=== PATIENT | male | born 1955 | race Caucasian/White ===

== ENCOUNTER 2023-02-05 15:37 | Emergency (ER) | payer MEDICARE ==
[~2023-02-05] VITALS: Ht 182.9 cm; Wt 136.1 kg
[2023-02-05 16:02] VITALS: BP 135/65
[2023-02-05] MEDS ORDERED: TORADOL IM STA (16:42)
[2023-02-05] MEDS ORDERED: TORADOL ONE (16:46)
--- NOTE | 2023-02-05 17:37 | DIREP ---
PROCEDURE:XRAY HIP MIN 2VW-RT COMPARISON:None. INDICATIONS:pain after injury FINDINGS: BONES:Right hip replacement. Hardware intact. Satisfactory alignment. JOINTS:Normal. SOFT TISSUES:Normal. OTHER:No additional findings. CONCLUSION:Hip replacement, no acute findings. Dictated by: Saúl Teresa MD on 02/05/2023 at 05:34 PM
--- NOTE | 2023-02-05 17:40 | DIREP ---
PROCEDURE:XRAY ANKLE MIN 3VWS-RT COMPARISON:None. INDICATIONS:pain after injury FINDINGS: BONES:Oblique mildly displaced fracture through the distal fibula, above the level of the talar dome. Degenerative changes of the dorsal midfoot with osteophyte. Moderate inferior calcaneal heel spur. JOINTS:Widening of the ankle mortise SOFT TISSUES:Soft tissue swelling overlying the lateral malleolus OTHER:No additional findings. CONCLUSION:Oblique mildly displaced fracture of the distal fibula. Dictated by: Saúl Teresa MD on 02/05/2023 at 05:36 PM
--- NOTE | 2023-02-05 17:41 | DIREP ---
PROCEDURE:XRAY KNEE 3 VIEWS-RT COMPARISON:None. INDICATIONS:pain after injury FINDINGS: BONES:Degenerative changes, small amounts of osteophyte and mild loss of joint space. JOINTS:Chondrocalcinosis SOFT TISSUES:Normal. OTHER:No additional findings. CONCLUSION:Dtwe-[id number]-vwutxvzm degenerative change. No acute findings. Dictated by: Saúl Teresa MD on 02/05/2023 at 05:39 PM
--- NOTE | 2023-02-05 18:02 | ER.PDOC ---
General Chief Complaint: Extremities Stated Complaint: KNEE AND ANKLE INJURY Time seen by MD: 16:05 Source: patient, family Exam Limitations: no limitations History of Present Illness Initial Comments Patient is a 67-year-old male with a past medical history of diabetes and blood pressure as well as dropfoot who has To wear special bracesComes in after a fall with right lower extremity pain. Patient states that he fell tripped and immediately had a sharp pain in his right lower extremity states that it occurred about 1 day ago last night and states that the pain is just progressively gotten worse. Patient states that sharp nonradiating made worse with movement palpation better with rest also made worse with weightbearing. Patient states that is started having bruising and swelling today is associated symptoms. Allergies: Coded Allergies: No Known Allergies (Unverified , 02/05/23) Past Medical History Medical History: diabetes, hypertension, other Surgical History: back, hip, knee, shoulder Family History Significant Family History: no pertinent family hx Social History Smoking: less than 1 pack/day Alcohol Use: none Drug Use: none Reviewed Nursing Reviewed: Vital Signs, Abn. Noted, Nursing Assessment Review of Systems Constitutional: no symptoms reported EENTM: no symptoms reported Respiratory: no symptoms reported Cardiovascular: no symptoms reported Gastrointestinal: no symptoms reported Genitourinary: no symptoms reported Musculoskeletal: joint pain, joint swelling Skin: change in color Psychiatric/Neurological: no symptoms reported Physical Exam General Appearance: Alert, No Apparent Distress Foot: tenderness, swelling, ecchymosis Ankle: tenderness, swelling, ecchymosis Knee: nml inspection, non-tender, nml ROM, no joint swelling Thigh/Hip: nml inspection Gait: limited by pain, unable to bear weight Neuro/Vasc/Tendon: sensation nml, motor nml, no vascular compromise, tendon function nml Skin: warm/dry Head/ENT: nml inspection, pharynx nml Neck/Back: nml inspection, non-tender Abdomen: non-tender, pelvis stable Results/Orders Results/Orders Orders - ZHANG ARNOLD MD Xr Knee Rt 3v (02/05/23 16:42) Xr Ankle 3v Rt (02/05/23 16:42) Xr Hip Rt 2v W/Pelvis (02/05/23 16:42) Ketorolac Tromethamine (Toradol) (02/05/23 16:42) Ketorolac Tromethamine (Toradol) (02/05/23 16:46) Vital Signs Date Time Temp Pulse Resp B/P (MAP) Pulse Ox O2 Delivery O2 Flow Rate FiO2 02/05/23 16:02 98.2 72 18 93 02/05/23 16:02 98.2 72 18 02/05/23 16:02 98.2 72 18 135/65 (88) 93 Room Air* 0 21 Administered Medications Medications (Trade) Dose Ordered Sig/Alvin Route PRN Reason Start Time Stop Time Status Last Admin Dose Admin Ketorolac Tromethamine (Toradol) 15 mg OT STAT IM 02/05/23 16:42 02/05/23 16:43 DC 02/05/23 16:50 15 MG Progress Progress Patient here with a fall with pain to the right lower extremity will obtain x- rays and just continue to monitor we will give ketorolac for symptomatic control My interpretation of patient's x-ray of the ankle shows fracture of the distal fibula radiology later agreed calling in an oblique mildly displaced fracture of the distal fibula. My interpretation of the knee and x-ray of the hip shows nothing acute radiology later agreed. [address] nursing staff place patient in the boot will discharge patient with ketorolac and Robaxin he states that his pain is somewhat better. He voiced understanding when to follow-up with PCP as well as Ortho and when to return to the ER. As did his ER DEPART Departure Time of Disposition: 18:01 Disposition: 01 HOME / SELF CARE / HOMELESS Impression: Primary Impression: Fracture of distal fibula Additional Impression: Fall Condition: Improved Patient Instructions: Ankle Fracture Referrals: PCP,UNKNOWN (PCP) PRIMARY CARE PROVIDER Additional Instructions: Follow-up with your primary care physician within the next week. If you have any new persistent or worsening symptoms or concerns seek medical attention. Please take all medications as prescribed. As we discussed you also need to follow-up with an orthopedic surgeon you can see any you like however here in [place] we have Dr. Gould who can be reached at [phone] to set up an appointment. Duration or Time Spent with Pa: 35 Problem Qualifiers Primary Impression: Fracture of distal fibula Encounter type: initial encounter Fracture type: closed Fracture morphology: unspecified fracture morphology Laterality: right Qualified Codes: S82.831A - Other fracture of upper and lower end of right fibula, i nitial encounter for closed fracture Additional Impression: Fall Encounter type: initial encounter Qualified Codes: W19.XXXA - Unspecified fall, initial encounter ZHANG ARNOLD MD Feb 05, 2023 18:02
== END 2023-02-05 18:07 | disposition home or self-care (01) ==
LOC: ER 15:37
DX: S82.831A Other fracture of upper and lower end of right fibula, initial encounter for closed fracture (principal); E11.9 Type 2 diabetes mellitus without complications; I10 Essential (primary) hypertension; W01.0XXA Fall on same level from slipping, tripping and stumbling without subsequent striking against object, initial encounter; Y93.89 Activity, other specified; Y92.89 Other specified places as the place of occurrence of the external cause; Y99.8 Other external cause status
CPT/HCPCS: 99284; 96372; 73502; 73562; 73610; J1885